=== PATIENT | female | born 1955 | race Caucasian/White ===

== ENCOUNTER 2017-07-03 18:54 | Emergency (ER) | payer MEDICAID ==
[~2017-07-03] VITALS: Ht 154.9 cm; Wt 79.4 kg
[~2017-07-03 18:54] MED LIST: ACET-8386 PO; AMLO-27 PO; GLIP5TAB13 PO; LISI-420 PO; METF1000 PO; PANT40VI PO; SIMV20TA6 PO; SITA100T8 PO; SOTA80TA PO; WARF6TAB PO
[2017-07-03 19:25] VITALS: BP 190/90
--- NOTE | 2017-07-03 19:30 | NUR ---
to lobby a/w bed, amb, stable, ermd noted
--- NOTE | 2017-07-03 19:50 | NUR ---
PATIENT AMBULATED TO ER BED 10
--- NOTE | 2017-07-03 19:51 | NUR ---
PATIENT PRESENTS TO ED WITH BACK PAIN RADIATING TO STOMACH X2 WEEKS S/P FALL X1 MONTH AGO. PT DENIES N/V/D; SKIN IS PINK/WARM/DRY; AAOX4 WITH EVEN AND STEADY GAIT; LUNGS CLEAR BL; HR EVEN AND REGULAR; PT DENIES ANY FEVER, CP, SOB, OR COUGH AT THIS TIME; PATIENT STATES PAIN OF 9/10 AT THIS TIME; VSS; PATIENT POSITIONED FOR COMFORT; HOB ELEVATED; BEDRAILS UP X1; BED DOWN. ER MD MADE AWARE OF PT STATUS.
--- NOTE | 2017-07-03 19:55 | NUR ---
DR. WICK AT BEDSIDE
[2017-07-03] MEDS ORDERED: ALUMINUM HYD/MAG/SIMETHICONE 30 ML UDC PO ONE (20:00)
[2017-07-03] MEDS ORDERED: DICYCLOMINE HCL LIQUID 10 MG/5 ML UDC PO ONE (20:00)
[2017-07-03] MEDS ORDERED: LIDOCAINE VISCOUS 2% 20 ML UDC PO ONE (20:00)
[2017-07-03] MEDS ORDERED: KETOROLAC 30 MG/ML VIAL IVP ONE (20:00)
[2017-07-03 21:46] LABS: APPEARANCE,URINE CLEAR (CLEAR); BILIRUBIN,URINE NEGATIVE (NEGATIVE); BLOOD, URINE NEGATIVE (NEGATIVE); COLOR,URINE YELLOW (YELLOW); LEUKOCYTE ESTERASE ,URINE TRACE (NEGATIVE); NITRITE, URINE NEGATIVE (NEGATIVE); PH,URINE 5.5 (5.0-9.0); UGLUCOSE NEGATIVE (NEGATIVE)
[2017-07-03 21:46] LABS: BASOPHILS # (AUTO) 0.3 K/uL (0.00-0.22); EOSINOPHILS # (AUTO) 0.2 K/uL (0-0.4); HEMATOCRIT 32.4 % (36-48); HEMOGLOBIN 10.2 g/dL (12.0-16.0); LYMPHOCYTES # (AUTO) 3.9 K/uL (2.5-16.5); MEAN CORPUSCULAR HEMOGLOBIN 24 pg (27-31); MEAN CORPUSCULAR HGB CONC 32 g/dL (33-37); MEAN CORPUSCULAR VOLUME 77.2 fL (80-94); MONOCYTES # (AUTO) 1.3 K/uL (0.8-1.0); NEUTROPHILS # (AUTO) 3.8 K/uL (1.8-7.7); PLATELET COUNT (AUTO) 335 K/uL (140-450); RED CELL DISTRIBUTION WIDTH 14.3 % (11.6-13.7); WHITE BLOOD COUNT (AUTO) 9.5 K/uL (4.8-10.8)
[2017-07-03 21:55] LABS: ALBUMIN 3.2 g/dL (3.4-5.0); ANION GAP 15.5 (8-16); CARBON DIOXIDE 24.1 mmol/L (21-32); CREATININE 1.2 mg/dL (0.6-1.3); POTASSIUM 3.6 mmol/L (3.5-5.1); TOTAL BILIRUBIN 0.2 mg/dL (0.0-1.0)
[2017-07-03 22:11] LABS: RBC,URINE 0-5 (RARE) /HPF (0-5); WBC,URINE 0-5 (RARE) /HPF (0-5)
[2017-07-03 23:14] VITALS: BP 176/86
--- NOTE | 2017-07-03 23:15 | NUR ---
Patient discharged with v/s stable. Written and verbal after care instructions given and explained. Patient alert, oriented and verbalized understanding of instructions. Ambulatory with steady gait. All questions addressed prior to discharge. ID band removed. Patient advised to follow up with PMD. Rx of MAALOX given. Patient educated on indication of medication including possible reaction and side effects. Opportunity to ask questions provided and answered.
== END 2017-07-03 23:15 | disposition home or self-care (01) ==
LOC: MED 18:54
DX: K29.70 Gastritis, unspecified, without bleeding (principal); M43.17 Spondylolisthesis, lumbosacral region; E11.9 Type 2 diabetes mellitus without complications; I10 Essential (primary) hypertension; M17.9 Osteoarthritis of knee, unspecified; E78.00 Pure hypercholesterolemia, unspecified; Z86.73 Personal history of transient ischemic attack (TIA), and cerebral infarction without residual deficits; Z79.84 Long term (current) use of oral hypoglycemic drugs; Z79.899 Other long term (current) drug therapy; Z88.0 Allergy status to penicillin
CPT/HCPCS: 36415; 71045; 72100; 80053; 81001; 82150; 83690; 84484; 85025; 93005; 96374; 99285; J1885

== ENCOUNTER 2018-07-28 16:30 | Emergency (ER) | payer MEDICAID ==
[~2018-07-28] VITALS: Ht 154.9 cm; Wt 71.7 kg
[~2018-07-28 16:30] MED LIST changes: -AMLO-27 PO; +AMLO10TA4 PO
[2018-07-28 16:37] VITALS: BP 150/82
--- NOTE | 2018-07-28 16:56 | NUR ---
Patient ambulated to bed 7. RN evaluating patient at bedside.
--- NOTE | 2018-07-28 17:00 | NUR ---
C/O HEADACHE, EARS PAIN & BODY PAIN X 1 WEEK. . DENIES N/V/D; SKIN IS PINK/WARM/DRY; AAOX4 WITH EVEN AND STEADY GAIT; LUNGS CLEAR BL; HR EVEN AND REGULAR; PT DENIES ANY FEVER, CP, SOB, OR COUGH AT THIS TIME; PATIENT STATES PAIN OF 8/10 AT THIS TIME; VSS; PATIENT POSITIONED FOR COMFORT; HOB ELEVATED; BEDRAILS UP X2; BED DOWN. ER MD MADE AWARE OF PT STATUS. family at bedside.
--- NOTE | 2018-07-28 17:16 | NUR ---
Dr. Méndez evaluating patient at bedside.
--- NOTE | 2018-07-28 17:28 | NUR ---
pt left for ct per tech via wheelchair
[2018-07-28] MEDS ORDERED: KETOROLAC 30 MG/ML VIAL IM ONE (18:25)
[2018-07-28 18:56] VITALS: BP 135/78
--- NOTE | 2018-07-28 18:56 | NUR ---
Patient discharged with v/s stable. Written and verbal after care instructions given and explained. Patient alert, oriented and verbalized understanding of instructions. Ambulatory with steady gait. All questions addressed prior to discharge. ID band removed. Patient advised to follow up with PMD. Rx of ibuprofen and valium given. Patient educated on indication of medication including possible reaction and side effects. Opportunity to ask questions provided and answered.
== END 2018-07-28 18:55 | disposition home or self-care (01) ==
LOC: MED 16:30
DX: R51 Headache (principal); M25.512 Pain in left shoulder; M25.511 Pain in right shoulder; E11.9 Type 2 diabetes mellitus without complications; I10 Essential (primary) hypertension; Z88.0 Allergy status to penicillin; Z79.891 Long term (current) use of opiate analgesic; Z79.01 Long term (current) use of anticoagulants; Z79.84 Long term (current) use of oral hypoglycemic drugs; Z79.899 Other long term (current) drug therapy; Z86.73 Personal history of transient ischemic attack (TIA), and cerebral infarction without residual deficits
CPT/HCPCS: 70450; 96372; 99284; J1885

== ENCOUNTER 2019-05-13 10:39 | Emergency (ER) | payer MEDICAID ==
[~2019-05-13] VITALS: Ht 152.4 cm; Wt 70.8 kg
[~2019-05-13 10:39] MED LIST changes: +SIMV-31 PO; -SIMV20TA6 PO
[2019-05-13 10:50] VITALS: BP 157/90
--- NOTE | 2019-05-13 10:57 | NUR ---
63 YR OLD F BIB SELF C/O PRODUCTIVE COUGH, RINORRHEA, SORE THROAT AND BODY ACHE X 3 DAYS. PMH- DM, HTN
[2019-05-13 11:19] VITALS: BP 147/77
--- NOTE | 2019-05-13 11:19 | NUR ---
Patient discharged with v/s stable. Written and verbal after care instructions given and explained. Patient alert, oriented and verbalized understanding of instructions. Ambulatory with steady gait. All questions addressed prior to discharge. ID band removed. Patient advised to follow up with PMD. Rx of Tylenol, Saman Ortiz given. Patient educated on indication of medication including possible reaction and side effects. Opportunity to ask questions provided and answered.
== END 2019-05-13 11:19 | disposition home or self-care (01) ==
LOC: MED 10:39
DX: R05 Cough (principal); E11.9 Type 2 diabetes mellitus without complications; I10 Essential (primary) hypertension; Z86.73 Personal history of transient ischemic attack (TIA), and cerebral infarction without residual deficits; Z79.84 Long term (current) use of oral hypoglycemic drugs; Z79.899 Other long term (current) drug therapy; Z88.0 Allergy status to penicillin
CPT/HCPCS: 99283

== ENCOUNTER 2023-05-11 13:24 | Emergency (ER) | payer OTHER, MEDICAID ==
[~2023-05-11] VITALS: Ht 157.5 cm; Wt 75.7 kg
[~2023-05-11 13:24] MED LIST changes: -ACET-8386 PO; +ACET-8905 PO; -AMLO10TA4 PO; +AMLO10TA89 PO; -GLIP5TAB13 PO; +GLIP5TAB22 PO; -LISI-420 PO; +LISI20TA29 PO; +METF-1274 PO; -METF1000 PO
[2023-05-11 13:40] VITALS: BP 203/93; PULSE 62; RESP 16; TEMP 97.9; O2SAT 98
[2023-05-11] MEDS: ACETAMINOPHEN EXTRA STRENGTH 500 MG TAB PO ONE (15:03)
[2023-05-11] MEDS: KETOROLAC 30 MG/ML VIAL IM ONE (15:06)
== END 2023-05-11 16:27 | disposition home or self-care (01) ==
LOC: MED 13:24
DX: S33.5XXA Sprain of ligaments of lumbar spine, initial encounter (principal); M25.552 Pain in left hip; M25.522 Pain in left elbow; E11.9 Type 2 diabetes mellitus without complications; I10 Essential (primary) hypertension; M19.90 Unspecified osteoarthritis, unspecified site; Z86.73 Personal history of transient ischemic attack (TIA), and cerebral infarction without residual deficits; Z96.652 Presence of left artificial knee joint; Z79.899 Other long term (current) drug therapy; Z79.01 Long term (current) use of anticoagulants; Z88.0 Allergy status to penicillin; W18.39XA Other fall on same level, initial encounter; Y92.89 Other specified places as the place of occurrence of the external cause; Y93.89 Activity, other specified; Y99.8 Other external cause status
CPT/HCPCS: 73080; 74176; 96372; 99285; J1885